=== PATIENT | male | born 1955 | race Caucasian/White ===

== ENCOUNTER 2021-01-13 19:05 | Inpatient (IN) | payer MEDICARE ==
[~2021-01-13] VITALS: Ht 180.3 cm; Wt 94.9 kg
[2021-01-13 19:36] LABS: BASOPHILS ABSOLUTE AUTO 0.05 K/mm3 (0.00-0.23); BASOPHILS PERCENT AUTO 0 % (0-2); EOSINOPHILS ABSOLUTE AUTO 0.04 K/mm3 (0.00-0.68); EOSINOPHILS PERCENT AUTO 0 % (0-6); Hematocrit 47.7 % (37.0-53.0); IMMATURE GRAN ABSOLUTE AUTO 0.05 K/mm3 (0.00-0.10); IMMATURE GRAN PERCENT AUTO 0 % (0-1); LYMPHOCYTES ABSOLUTE AUTO 1.22 K/mm3 (0.84-5.20); LYMPHOCYTES PERCENT AUTO 8 % (21-46); MONOCYTES ABSOLUTE AUTO 1.41 K/mm3 (0.16-1.47); MONOCYTES PERCENT AUTO 9 % (4-13); Mean Corpuscular HGB 30.1 pg (26.0-34.0); Mean Corpuscular HGB Conc 33.5 g/dL (31.5-36.5); Mean Corpuscular Volume 90 fL (80-100); NEUTROPHILS ABSOLUTE AUTO 12.88 K/mm3 (1.96-9.15); NEUTROPHILS PERCENT AUTO 82 % (41-73); Platelet Count 214 K/mm3 (150-400); RDW Coefficient Variation 13.6 % (11.7-14.2); RDW Standard Deviation 44.5 fL (35.1-46.3); Red Blood Cell Count 5.31 M/mm3 (4.30-5.90); White Blood Cell Count 15.65 K/mm3 (4.00-11.30)
[2021-01-13 19:59] LABS: Alanine Aminotransfer (ALT/SGP 18 U/L (12-78); Albumin, Blood 3.8 g/dL (3.4-5.0); Alk Phos 59 U/L (50-136); Anion Gap 8 mmol/L (6-16); Aspartate Aminotrans (AST/SGOT 17 U/L (12-37); Bilirubin, Total 1.4 mg/dL (0.1-1.0); Blood Urea Nitrogen 13 mg/dL (8-24); Bun/Creatinine Ratio 13.6 (12.0-20.0); CO2, Blood 23 mmol/L (21-32); Calcium, Blood 9.4 mg/dL (8.5-10.1); Chloride, Blood 108 mmol/L (98-108); Creatinine, Blood 0.95 mg/dL (0.60-1.20); Globulin, Blood 3.9 g/dL (2.2-4.0); Glomerular Filtration Rate >60 (60-); Glucose, Blood 164 mg/dL (70-99); Potassium, Blood 3.6 mmol/L (3.5-5.5); Sodium, Blood 139 mmol/L (136-145); Total Protein, Blood 7.7 g/dL (6.4-8.2); Troponin I <0.015 ng/mL (0.000-0.040)
--- NOTE | 2021-01-14 00:11 | NUR ---
PT NEW ADMIT FROM ER FOR APPY. PT A/O, VSS, REP GENERALIZED ABD PAIN 6-/10, PAIN WORSE W/PALP IN RLQ. PT DENIES N/V AT THIS TIME. 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 REP LAST DRINK 01/12/21.PT EDUCATED ON WITHDRAWAL SYMPTOMS, STATES HE HAS GONE SEVERAL DAYS W/O DRINKING W/NO WITHDRAWAL SYMPTOMS. PT EDUCATD TO NOTIFY STAFF OF ANY CHANGES. PT ORIENTED TO ROOM/CALL LIGHT AND NPO STATUS. COVID TEST COLLECTED.
[2021-01-14 00:42] LABS: SARS-Cov-2 (COVID-19) PCR, MMC NEGATIVE (NEGATIVE)
--- NOTE | 2021-01-14 05:53 | NUR ---
ANXIETY/CIWA: PT BECOMING MORE ANXIOUS, REP HEADACHE 12/29, HAS VISIBLE TREMORS. CALL PLACED TO DR GARCIA; UPDATED ON PT CONDITION. NEW ORDERS REC.
--- NOTE | 2021-01-14 07:22 | NUR ---
PT VSS. SATS TRENDING 91-92 ON 3LO2 AFTER FENTANYL AND ATIVAN GIVEN THIS AM. PT CLARIFIED LAST ALCOHOLIC DRINK WAS FRIDAY 01/12 AFTERNOON. CIWA 11, PT REP FEELING "MUCH BETTER" AFTER ATIVAN GIVEN. ABD REMAINS TENDER TO PALP, NO HCANGES IN DISTENTION. PT NPO SINCE ARRIVING TO FLOOR, IVF AND ABX CONT. PLAN FOR SURGERY TODAY.
--- NOTE | 2021-01-14 09:43 | NUR ---
PT TO SURGERY AT THIS TIME. MEDICATED WITH ATIVAN FOR WITHDRAWALS. UNHOOKED FROM IV AND VOIDED BEFORE LEAVING.
--- NOTE | 2021-01-14 11:38 | NUR ---
01/14/21 Brent8 Chacha Lozoya PATIENT ON SCHEDULED ANTIBIOTICS- ZOTSN 3.375 MG GIVEN AT 0541 01/14/2021.
--- NOTE | 2021-01-14 13:43 | NUR ---
RECEIVED PT BACK FROM PACU AT AROUND 1240. PT REPORTS TO BE FEELING MUCH BETTER AND HAS NO C/O PAIN/NAUSEA. ANTIBIOTICS STARTED.
--- NOTE | 2021-01-14 17:31 | NUR ---
SHIFT SUMMARY PT STATUS POST FOR LAP APPY WHERE THE APPENDIX WAS FOUND TO BE RUPTURED. WILL STAY OVERNIGHT TO RECEIVE IV ANTIBIOTICS. A/O X4 AND ABLE TO MAKE NEEDS KNOWN. HX OF ETOH AND POSITIVE CIWA. MEDICATED X1 WITH ATIVAN. 3 LAP SITES COVERED WITH STERI STRIPS AND CDI. VSS. RESTING COMFORTABLY IN BED WITH HIS CALL LIGHT IN REACH. WILL REPORT TO DEYSI ZALDIVAR.
[2021-01-15 06:24] LABS: BASOPHILS ABSOLUTE AUTO 0.02 K/mm3 (0.00-0.23); BASOPHILS PERCENT AUTO 0 % (0-2); Hematocrit 39.8 % (37.0-53.0); Hemoglobin 12.9 g/dL (13.5-17.5); LYMPHOCYTES ABSOLUTE AUTO 0.48 K/mm3 (0.84-5.20); LYMPHOCYTES PERCENT AUTO 4 % (21-46); MONOCYTES ABSOLUTE AUTO 0.52 K/mm3 (0.16-1.47); MONOCYTES PERCENT AUTO 5 % (4-13); Mean Corpuscular HGB 30.1 pg (26.0-34.0); Mean Corpuscular HGB Conc 32.4 g/dL (31.5-36.5); Mean Corpuscular Volume 93 fL (80-100); Mean Platelet Volume 11.4 fL (9.1-12.4); Platelet Count 132 K/mm3 (150-400); RDW Coefficient Variation 13.7 % (11.7-14.2); RDW Standard Deviation 46.6 fL (35.1-46.3); Red Blood Cell Count 4.28 M/mm3 (4.30-5.90); White Blood Cell Count 11.64 K/mm3 (4.00-11.30)
[2021-01-15 06:35] LABS: EOSINOPHILS ABSOLUTE AUTO 0.01 K/mm3 (0.00-0.68); EOSINOPHILS PERCENT AUTO 0 % (0-6); IMMATURE GRAN ABSOLUTE AUTO 0.05 K/mm3 (0.00-0.10); IMMATURE GRAN PERCENT AUTO 0 % (0-1); NEUTROPHILS ABSOLUTE AUTO 10.56 K/mm3 (1.96-9.15); NEUTROPHILS PERCENT AUTO 91 % (41-73)
[2021-01-15 06:41] LABS: Anion Gap 5 mmol/L (6-16); Blood Urea Nitrogen 13 mg/dL (8-24); Bun/Creatinine Ratio 12.1 (12.0-20.0); CO2, Blood 29 mmol/L (21-32); Calcium, Blood 8.2 mg/dL (8.5-10.1); Chloride, Blood 103 mmol/L (98-108); Creatinine, Blood 1.07 mg/dL (0.60-1.20); Glomerular Filtration Rate >60 (60-); Glucose, Blood 136 mg/dL (70-99); Potassium, Blood 3.7 mmol/L (3.5-5.5); Sodium, Blood 137 mmol/L (136-145)
--- NOTE | 2021-01-15 19:22 | NUR ---
SHIFT SUMMARY PT POD #1 FOR RUPTURED APPY. PT NEEDS ENCOURAGEMENT TO COUGH AND DEEP BREATHE. BEEN USING I.S. LAP SITES CDI. AMBULATES IN [place] WITH SBA. ON 3 LITERS O2, DESATS INTO THE 80S WHEN AMBULATING. MAY NEED TO GO HOME ON OXYGEN. CHEST X-RAY COMPLETED. VSS.
--- NOTE | 2021-01-16 04:15 | NUR ---
SHIFT SUMMARY PT RESTED WELL T/O NIGHT. NO SIGNS OF WITHDRAWAL NOTED. 1 NORCO FOR PAIN MANAGEMENT PRN. PT REPORTS SOME FLATUS. SLOWLY APRIL CLEAR LIQS. IVF INFUSING PER ORDERS. USING URINAL TO VOID. PT ON 1.5L VIA NC AND SATTING 90-92%. ENCOURAGING COUGHING AND I/S USE. USES CALL LIGHT APPROPRIATELY.
[2021-01-16 04:54] LABS: BASOPHILS ABSOLUTE AUTO 0.03 K/mm3 (0.00-0.23); BASOPHILS PERCENT AUTO 0 % (0-2); EOSINOPHILS ABSOLUTE AUTO 0.12 K/mm3 (0.00-0.68); EOSINOPHILS PERCENT AUTO 1 % (0-6); Hematocrit 41.1 % (37.0-53.0); Hemoglobin 13.2 g/dL (13.5-17.5); IMMATURE GRAN ABSOLUTE AUTO 0.07 K/mm3 (0.00-0.10); IMMATURE GRAN PERCENT AUTO 1 % (0-1); LYMPHOCYTES ABSOLUTE AUTO 0.62 K/mm3 (0.84-5.20); LYMPHOCYTES PERCENT AUTO 6 % (21-46); MONOCYTES ABSOLUTE AUTO 0.61 K/mm3 (0.16-1.47); MONOCYTES PERCENT AUTO 6 % (4-13); Mean Corpuscular HGB Conc 32.1 g/dL (31.5-36.5); Mean Corpuscular Volume 93 fL (80-100); Mean Platelet Volume 11.4 fL (9.1-12.4); NEUTROPHILS ABSOLUTE AUTO 9.06 K/mm3 (1.96-9.15); NEUTROPHILS PERCENT AUTO 86 % (41-73); Platelet Count 135 K/mm3 (150-400); RDW Coefficient Variation 13.7 % (11.7-14.2); RDW Standard Deviation 46.9 fL (35.1-46.3); White Blood Cell Count 10.51 K/mm3 (4.00-11.30)
--- NOTE | 2021-01-16 12:53 | NUR ---
pt back to room from CT
--- NOTE | 2021-01-16 16:36 | NUR ---
DR DAAMSON IN TO SEE PT.
--- NOTE | 2021-01-16 17:57 | NUR ---
SUMMARY PT REPORTS FEELING SLIGHTLY IMPROVED THIS EVENING. PREPARING TO TAKE SHOWER. NO FLATUS YET. ABD DISTENDED AND FIRM. PRODUCTIVE COUGH W/THIN CLEAR SPUTUM. 02 SATS LOW 90S ON 1.5L NC. MEDICATED ONCE DURING SHIFT FOR CIWA OF 5. PT SLEPT FOR BRIEF AMOUNT OF TIME AFTERWARD. PT NOT DIAPHORETIC OR N/V AT THIS TIME. SPOUSE IN TO SEE PT THIS AFTERNOON. SAT UP IN CHAIR MOST OF DAY. BANANA BAG COMPLETED PER ORDERS.
--- NOTE | 2021-01-16 19:25 | NUR ---
REPORT GIVEN TO ONCOMING SHIFT.
[2021-01-17 04:19] LABS: BASOPHILS ABSOLUTE AUTO 0.04 K/mm3 (0.00-0.23); BASOPHILS PERCENT AUTO 0 % (0-2); EOSINOPHILS PERCENT AUTO 3 % (0-6); Hematocrit 43.4 % (37.0-53.0); Hemoglobin 14.1 g/dL (13.5-17.5); IMMATURE GRAN ABSOLUTE AUTO 0.07 K/mm3 (0.00-0.10); IMMATURE GRAN PERCENT AUTO 1 % (0-1); LYMPHOCYTES ABSOLUTE AUTO 0.78 K/mm3 (0.84-5.20); LYMPHOCYTES PERCENT AUTO 8 % (21-46); MONOCYTES ABSOLUTE AUTO 0.79 K/mm3 (0.16-1.47); MONOCYTES PERCENT AUTO 8 % (4-13); Mean Corpuscular HGB 30.1 pg (26.0-34.0); Mean Corpuscular HGB Conc 32.5 g/dL (31.5-36.5); Mean Corpuscular Volume 93 fL (80-100); Mean Platelet Volume 11.1 fL (9.1-12.4); NEUTROPHILS PERCENT AUTO 80 % (41-73); Platelet Count 164 K/mm3 (150-400); RDW Coefficient Variation 13.8 % (11.7-14.2); RDW Standard Deviation 47.4 fL (35.1-46.3); Red Blood Cell Count 4.68 M/mm3 (4.30-5.90); White Blood Cell Count 9.68 K/mm3 (4.00-11.30)
[2021-01-17 04:47] LABS: Magnesium, Blood 2.7 mg/dL (1.6-2.4)
[2021-01-17 04:50] LABS: Alanine Aminotransfer (ALT/SGP 12 U/L (12-78); Albumin, Blood 2.3 g/dL (3.4-5.0); Albumin/Globulin Ratio 0.6 (0.8-1.8); Alk Phos 35 U/L (50-136); Anion Gap 4 mmol/L (6-16); Aspartate Aminotrans (AST/SGOT 11 U/L (12-37); Bilirubin, Total 0.8 mg/dL (0.1-1.0); Blood Urea Nitrogen 10 mg/dL (8-24); Bun/Creatinine Ratio 9.9 (12.0-20.0); CO2, Blood 30 mmol/L (21-32); Calcium, Blood 8.8 mg/dL (8.5-10.1); Chloride, Blood 102 mmol/L (98-108); Creatinine, Blood 1.01 mg/dL (0.60-1.20); Globulin, Blood 3.9 g/dL (2.2-4.0); Glomerular Filtration Rate >60 (60-); Glucose, Blood 108 mg/dL (70-99); Phosphorus, Blood 2.7 mg/dL (2.5-4.9); Potassium, Blood 3.5 mmol/L (3.5-5.5); Sodium, Blood 136 mmol/L (136-145); Total Protein, Blood 6.2 g/dL (6.4-8.2)
--- NOTE | 2021-01-17 07:56 | NUR ---
SUMMARY PT UP IN HALLS.CONTINUES WITH NAUSEA DESPITE ZOFRAN AND REGLAN. SCANT FLATUS. STATES HAD LIQ BROWN BM TONIGHT."FLUSHED IT" ABD CONTINUES DISTENDED.CIWA 4.
--- NOTE | 2021-01-17 17:32 | NUR ---
EMESIS: PT HAS HAD TOTAL OF 1200 OF EMESIS BY 1130 TODAY. PT REPORTS FEELING BETTER AFTER VOMITING. PT HAS DENIED FLATUS OR BM, ABD IS FIRM AND DISTENTED. DR. ADAMSON MADE AWARE, NO NEW ORDERS AT THIS TIME. WILL CTM.
--- NOTE | 2021-01-17 17:50 | NUR ---
PT HAS VOIDED TOTAL OF 200ML TODAY. BLADDER SCAN POST VOID RESIDUAL SHOWED 87ML. DR. RUSSO CALLED AT 1750, SEE NEW ORDERS FOR IV FLUIDS AT THIS TIME. WILL CTM
--- NOTE | 2021-01-17 18:38 | NUR ---
SUMMARY: PT IS POD3 LAP APPY. A/O, VSS. SURGICAL SITES WNL. PT ABD IS VERY DISTENDED AND FIRM. PT C/O NAUSEA THOUGHOUT TODAY AND WOULD VOMIT LARGE AMOUNTS (500ML) THEN REPORT FEELING BETTER. PT DENIES FLATUS, NO BM TODAY. PT ABLE TO GO ON SERVERAL WALKS AND SIT IN RECLINER. DID NOT HAVE ANY PO INTAKE, CLINIMIX STARTED THIS AFTERNOON. CWIA SCORES ARE 0-2. PT HAS HAD MINIMAL PAIN. NO ACUTE SAFETY CONCERNS AT THIS TIME, WILL REPORT TO DEYSI ZALDIVAR.
--- NOTE | 2021-01-18 04:09 | NUR ---
PT CONTINUES WITH EMESIS. NO FLATUS,NO BM. ARNALDO RN REPORTED DR ADAMSON AWARE OF ONGOING N/V. REPORTED DR ADAMSON STATED COULD PLACE NG IF PT WILLING TO ALLOW, WHICH SO FAR PT HAS DECLINED.ARNALDO RN VERB SHE CONFIRMED WITH DR RUSSO THAT HE WISHED FOR NS AT 125/HR TO RUN CONCURRENT WITH CLINIMIX ORDERED DUE TO DECREASED URINARY OUTPUT AND LARGE VOLUME EMESIS.DISCUSSED WITH PT BENEFITS OF NG AND DYNAMICS OF AN ILEUS.HOWEVER, PT CONT TO REFUSE NG.PT STATES HE WANTS TO SPEAK WITH DR ADAMSON IN AM ABOUT THE POSSIBLILITY OF HAVING F/U XRAY AND THEN WOULD CONSIDER POSSIBLITY OF NG IF DR ADAMSON WOULD RECOMMEND.
[2021-01-18 04:58] LABS: BASOPHILS ABSOLUTE AUTO 0.04 K/mm3 (0.00-0.23); BASOPHILS PERCENT AUTO 0 % (0-2); EOSINOPHILS PERCENT AUTO 1 % (0-6); Hematocrit 40.4 % (37.0-53.0); IMMATURE GRAN ABSOLUTE AUTO 0.07 K/mm3 (0.00-0.10); IMMATURE GRAN PERCENT AUTO 1 % (0-1); LYMPHOCYTES ABSOLUTE AUTO 0.54 K/mm3 (0.84-5.20); LYMPHOCYTES PERCENT AUTO 6 % (21-46); MONOCYTES ABSOLUTE AUTO 0.72 K/mm3 (0.16-1.47); MONOCYTES PERCENT AUTO 7 % (4-13); Mean Corpuscular HGB 29.8 pg (26.0-34.0); Mean Corpuscular HGB Conc 32.2 g/dL (31.5-36.5); Mean Corpuscular Volume 93 fL (80-100); Mean Platelet Volume 10.9 fL (9.1-12.4); NEUTROPHILS PERCENT AUTO 85 % (41-73); Platelet Count 187 K/mm3 (150-400); RDW Coefficient Variation 13.5 % (11.7-14.2); RDW Standard Deviation 46.3 fL (35.1-46.3); Red Blood Cell Count 4.36 M/mm3 (4.30-5.90); White Blood Cell Count 9.67 K/mm3 (4.00-11.30)
[2021-01-18 05:26] LABS: Alanine Aminotransfer (ALT/SGP 13 U/L (12-78); Albumin, Blood 2.3 g/dL (3.4-5.0); Albumin/Globulin Ratio 0.6 (0.8-1.8); Alk Phos 33 U/L (50-136); Anion Gap 6 mmol/L (6-16); Aspartate Aminotrans (AST/SGOT 4 U/L (12-37); Bilirubin, Total 0.5 mg/dL (0.1-1.0); Blood Urea Nitrogen 13 mg/dL (8-24); Bun/Creatinine Ratio 14.7 (12.0-20.0); CO2, Blood 29 mmol/L (21-32); Calcium, Blood 8.4 mg/dL (8.5-10.1); Chloride, Blood 104 mmol/L (98-108); Creatinine, Blood 0.89 mg/dL (0.60-1.20); Globulin, Blood 3.9 g/dL (2.2-4.0); Glomerular Filtration Rate >60 (60-); Glucose, Blood 151 mg/dL (70-99); Magnesium, Blood 2.6 mg/dL (1.6-2.4); Phosphorus, Blood 2.6 mg/dL (2.5-4.9); Potassium, Blood 3.3 mmol/L (3.5-5.5); Sodium, Blood 139 mmol/L (136-145); Total Protein, Blood 6.2 g/dL (6.4-8.2)
--- NOTE | 2021-01-18 07:29 | NUR ---
SUMMARY PT AMBULATING IN HALLS THIS AM. C/O TINGLING TO TOP OF L THIGH. DAY RN AGREES TO FOLLOW UP.
--- NOTE | 2021-01-18 15:09 | NUR ---
DISCHARGE MED REC FAXED TO [facility].
--- NOTE | 2021-01-18 17:56 | NUR ---
SUMMARY: PT IS POD 4 LAP APPY. PT IS A/O, VSS. SURGICAL SITE WNL. PT ABD CONTINUES TO BE DISTENDED, PT DOES REPORT FLATUS AND HAS HAD X4 SMALL LIQUID BM'S TODAY. PT HAS REPORTED MILD NAUSEA, NO EMESIS. PT HAS TAKEN TOTAL OF 5 WALKS IN HALLS. HAS TRIED SOME ENSURE TONIGHT. DENIES ANY SURGICAL PAIN. FINE CRACKLES ASCULTATED AT LUNG BASES, I.S. AND DEEP BREATHE ENCOURAGED. ISTRATE NOTIFIED. SEE ORDER FOR CHEST XRAY. PT DENIES ANY SOB. PT DOES HAVE PRODUCTIVE COUGH WITH YELLOW SPUTUM. NO ACUTE SAFETY CONCERNS, PLAN IS FOR POSSIBLE DC TOMORROW. WILL REPORT TO DEYSI ZALDIVAR.
--- NOTE | 2021-01-19 04:50 | NUR ---
SHIFT SUMMARY POD#4 PERFORATED APPI. AAOX4. DISCOMFORT AT TOLERABLE LEVEL T/O NIGHT. DENIES NAUSEA/EMESIS THIS SHIFT. ABD INCISIONS WITH STERI STRIPS X2 + GAUZE X1 C/D/I. ABD FIRM/DISTENDED, PT REPORTING DECREASED DISTENSION THIS AM. MULTIPLE LIQUID STOOLS + FLATUS THIS SHIFT. PT AMBULATING OUT IN HALLS INDEPENDENTLY. LUNG SOUNDS DIMINISHED WITH FINE CRACKLES NOTED IN BASES THIS MORNING, ENCOURAGED INCENTIVE SPIROMETRY + FLUTTER VALVE USE. MINIMAL PO INTAKE T/O NIGHT WITH PT TOLERATING 240cc BROTH THIS AM. PT CURRENTLY UP TO RESTROOM FOR ANOTHER BM. IVF + ABX PER ORDERS. WILL CONTINUE TO ENCOURAGE AMBULATION + DIET TOLERATED TODAY PER ORDERS.
[2021-01-19 13:35] LABS: C DIFFICILE DNA NEGATIVE (Negative)
[2021-01-19] MEDS ORDERED: POLY500 PO (14:55)
--- NOTE | 2021-01-19 16:03 | NUR ---
DISCHARGE PT DISCHARGED HOME FROM UNIT AT APROX 1530. PT GIVEN WRITTEN AND VERBAL DISCHARGE INFORMATION AND VERBALIZED UNDERSTANDING. IV REMOVED, PT TOELRATED WELL. REFUSED WC TO CAR, AMBULATED INDEPENDENTLY TO CAR.
== END 2021-01-19 15:34 | disposition home or self-care (01) | DRG 853 ==
LOC: ER 19:05 → SURS 21:49
PROVIDERS: Family Medicine; Physician Assistant; Surgery; ADMIT Surgery
PROC: 0DTJ4ZZ Resection of Appendix, Percutaneous Endoscopic Approach (ICD-10-PCS; principal; 2021-01-14 10:30)
DX: A41.9 Sepsis, unspecified organism (principal); K35.32 Acute appendicitis with perforation, localized peritonitis, and gangrene, without abscess; Z20.822 Contact with and (suspected) exposure to COVID-19; F10.239 Alcohol dependence with withdrawal, unspecified; K56.7 Ileus, unspecified; J98.11 Atelectasis; R09.02 Hypoxemia; D69.59 Other secondary thrombocytopenia; R19.7 Diarrhea, unspecified; Z98.890 Other specified postprocedural states
CPT/HCPCS: 36415; 71045; 71260; 74177; 80048; 80053; 83690; 83735; 83880; 84100; 84145; 84484; 85025; 85379; 87493; 88304; 93005; 93010; 94667; 94762; 96361-59; 96365-59; 96375-59; 99285-25; A9270; J1100; J1170; J1650; J1885; J2060; J2250; J2270; J2405; J2543; J2704; J2765; J3010; J3411; J3475; J7030; J7042; J7120; Q9967; U0004